=== PATIENT | female | born 1960 | race Caucasian/White ===

== ENCOUNTER 2022-06-25 12:20 | Emergency (ER) | payer OTHER ==
[2022-06-25 18:41] LABS: Benzodiazepines Screen,Urine Detected (NotDetected)
[2022-06-25 18:42] LABS: Amphetamine Screen,Urine Not Detected (NotDetected); Barbiturate Screen,Urine Not Detected (NotDetected); Cocaine Screen,Urine Not Detected (NotDetected); Methadone Screen, Urine Not Detected (NotDetected); Opiate Screen,Urine Not Detected (NotDetected); Oxycodone Screen, Urine Not Detected (NotDetected); Phencyclidine Screen,Urine Not Detected (NotDetected); Tricyclic Antidepressant,Urine Not Detected (NotDetected); Urn Cannabinoid Scrn Not Detected (NotDetected)
--- NOTE | 2022-06-25 20:08 | ED ---
General Adult HPI - General Source: patient Mode of arrival: ambulatory Limitations: no limitations <Jesus Manuel Cruz Orly - Last Filed: 06/25/22 22:19> <KarisBrandon robin - Last Filed: 06/26/22 01:29> - General Chief complaint: Psychiatric Symptoms Stated complaint: Mental health Time Seen by Provider: 06/25/22 14:34 - History of Present Illness Initial comments: Dictation was produced using [employer] dictation software. please excuse any grammatical, word or spelling errors. Chief Complaint: 61-year-old male presents with depression History of Present Illness: 89-year-old female presents emergency department for depression. Patient states she does not want to live anymore she does not have any active plan to harm herself. Denies any homicidal ideation. She states she is depressed because of losing 2 of her 3 children. Patient denies any visual auditory hallucinations. She states that she's been having some aching pain to her anterior abdomen. Denies any history of coronary artery disease she does this of a history of mitral valve prolapse. She has a achy chest pressure that is nonradiating. Not associated with diaphoresis or nausea. No strong family history of coronary artery disease or heart conditions. The ROS documented in this emergency department record has been reviewed and confirmed by me. Those systems with pertinent positive or negative responses have been documented in the HPI. All other systems are other negative and/or noncontributory. PHYSICAL EXAM: General Impression: Alert and oriented x3, not in acute distress HEENT: Normocephalic atraumatic, extra-ocular movements intact, pupils equal and reactive to light bilaterally, mucous membranes moist. Cardiovascular: Heart regular rate and rhythm Chest: Able to complete full sentences, no retractions, no tachypnea Abdomen: abdomen soft, non-tender, non-distended, no organomegaly Musculoskeletal: Pulses present and equal in all extremities, no peripheral edema Motor: no focal deficits noted Neurological: CN II-XII grossly intact, no focal motor or sensory deficits noted Skin: Intact with no visualized rashes Psych: Normal affect and mood ED course: 61-year-old female presents emergency department for depression she complains of atypical chest pain with typical features. Patient does not have a lot of risk for coronary artery disease. Vital signs upon arrival are within acceptable limits. Laboratory evaluation obtained. CBC, coag panel metabolic panel is unremarkable. Troponin is negative. Patient medically cleared for EPS evaluation. EKG interpretation: Ventricular rate 49, sinus bradycardia, VT interval 127, QS 150, QTc 395. No VT prolongation, no QTC prolongation, no ST or T-wave changes noted. Overall, this EKG is unremarkable (Jesus Manuel Crzu) - Related Data Allergies Allergy/AdvReac Type Severity Reaction Status Date / Time No Known Allergies Allergy Verified 06/25/22 22:19 Review of Systems ROS Other: All systems not noted in ROS Statement are negative. <Jesus Manuel Cruz - Last Filed: 06/25/22 22:19> ROS Other: All systems not noted in ROS Statement are negative. <Brandon Sandy - Last Filed: 06/26/22 01:29> ROS Statement: Those systems with pertinent positive or pertinent negative responses have been documented in the HPI. Past Medical History Past Medical History: Mitral Valve Prolapse (MVP), Rheumatoid Arthritis (RA) Past Surgical History: Breast Surgery, Orthopedic Surgery Past Psychological History: Anxiety, Depression, PTSD Smoking Status: Current every day smoker Past Alcohol Use History: None Reported Past Drug Use History: Heroin, Prescription Drug Abuse <Jesus Manuel Cruz - Last Filed: 06/25/22 22:19> General Exam Limitations: no limitations <Jesus Manuel Cruz - Last Filed: 06/25/22 22:19> Course Vital Signs 06/25/22 12:25 Temperature 98.2 F Pulse Rate 64 Respiratory 18 Rate Blood Pressure 176/73 O2 Sat by Pulse 100 Oximetry Medical Decision Making - Lab Data Result diagrams: 06/25/22 20:48 06/25/22 20:48 <Jesus Manuel Cruz - Last Filed: 06/25/22 22:19> - Lab Data Result diagrams: 06/25/22 20:48 06/25/22 20:48 <Brandon Sandy - Last Filed: 06/26/22 01:29> - Lab Data Lab Results 06/25/22 06/25/22 06/25/22 Range/Units 18:03 20:48 20:48 WBC 9.1 (3.8-10.6) k/uL RBC 5.15 (3.80-5.40) m/uL Hgb 15.4 (11.4-16.0) gm/dL Hct 48.4 H (34.0-46.0) % MCV 94.1 (80.0-100.0) fL MCH 29.9 (25.0-35.0) pg MCHC 31.7 (31.0-37.0) g/dL RDW 14.5 (11.5-15.5) % Plt Count 354 (150-450) k/uL MPV 7.1 Neutrophils % 58 % Lymphocytes % 35 % Monocytes % 3 % Eosinophils % 3 % Basophils % 5 % Neutrophils # 5.3 (1.3-7.7) k/uL Lymphocytes # 3.1 (1.0-4.8) k/uL Monocytes # 0.3 (0-1.0) k/uL Eosinophils # 0.2 (0-0.7) k/uL Basophils # 0.5 H (0-0.2) k/uL PT 10.1 (9.0-12.0) sec INR 0.9 (<1.2) APTT 25.5 (22.0-30.0) sec Sodium (137-145) mmol/L Potassium (3.5-5.1) mmol/L Chloride (98-107) mmol/L Carbon Dioxide (22-30) mmol/L Anion Gap mmol/L BUN (7-17) mg/dL Creatinine (0.52-1.04) mg/dL Est GFR (CKD-EPI)AfAm (>60 ml/min/1.73 sqM) Est GFR (CKD-EPI)NonAf (>60 ml/min/1.73 sqM) Glucose (74-99) mg/dL Calcium (8.4-10.2) mg/dL Troponin I (0.000-0.034) ng/mL Urine Opiates Screen Not Detected (NotDetected) Ur Oxycodone Screen Not Detected (NotDetected) Urine Methadone Screen Not Detected (NotDetected) Ur Propoxyphene Screen Not Detected (NotDetected) Ur Barbiturates Screen Not Detected (NotDetected) U Tricyclic Antidepress Not Detected (NotDetected) Ur Phencyclidine Scrn Not Detected (NotDetected) Ur Amphetamines Screen Not Detected (NotDetected) U Methamphetamines Scrn Not Detected (NotDetected) U Benzodiazepines Scrn Detected H (NotDetected) Urine Cocaine Screen Not Detected (NotDetected) U Marijuana (THC) Screen Not Detected (NotDetected) 06/25/22 06/25/22 Range/Units 20:48 20:48 WBC (3.8-10.6) k/uL RBC (3.80-5.40) m/uL Hgb (11.4-16.0) gm/dL Hct (34.0-46.0) % MCV (80.0-100.0) fL MCH (25.0-35.0) pg MCHC (31.0-37.0) g/dL RDW (11.5-15.5) % Plt Count (150-450) k/uL MPV Neutrophils % % Lymphocytes % % Monocytes % % Eosinophils % % Basophils % % Neutrophils # (1.3-7.7) k/uL Lymphocytes # (1.0-4.8) k/uL Monocytes # (0-1.0) k/uL Eosinophils # (0-0.7) k/uL Basophils # (0-0.2) k/uL PT (9.0-12.0) sec INR (<1.2) APTT (22.0-30.0) sec Sodium 138 (137-145) mmol/L Potassium 4.0 (3.5-5.1) mmol/L Chloride 97 L (98-107) mmol/L Carbon Dioxide 26 (22-30) mmol/L Anion Gap 15 mmol/L BUN 17 (7-17) mg/dL Creatinine 0.76 (0.52-1.04) mg/dL Est GFR (CKD-EPI)AfAm >90 (>60 ml/min/1.73 sqM) Est GFR (CKD-EPI)NonAf 87 (>60 ml/min/1.73 sqM) Glucose 90 (74-99) mg/dL Calcium 10.5 H (8.4-10.2) mg/dL Troponin I <0.012 (0.000-0.034) ng/mL Urine Opiates Screen (NotDetected) Ur Oxycodone Screen (NotDetected) Urine Methadone Screen (NotDetected) Ur Propoxyphene Screen (NotDetected) Ur Barbiturates Screen (NotDetected) U Tricyclic Antidepress (NotDetected) Ur Phencyclidine Scrn (NotDetected) Ur Amphetamines Screen (NotDetected) U Methamphetamines Scrn (NotDetected) U Benzodiazepines Scrn (NotDetected) Urine Cocaine Screen (NotDetected) U Marijuana (THC) Screen (NotDetected) Disposition <Jesus Manuel Cruz - Last Filed: 06/25/22 22:19> Is patient prescribed a controlled substance at d/c from ED?: No <Brandon Sandy - Last Filed: 06/26/22 01:29> Clinical Impression: Mood disorder Disposition: HOME SELF-CARE Condition: Good Instructions (If sedation given, give patient instructions): Mood Disorders ( ED) Referrals: Nonstaff,Physician [Primary Care Provider] - 1-2 days
[2022-06-25 21:07] LABS: Basophils # (A) 0.5 k/uL (0-0.2); Basophils % (A) 5 %; Eosinophils # (A) 0.2 k/uL (0-0.7); Eosinophils % (A) 3 %; HCT 48.4 % (34.0-46.0); HGB 15.4 gm/dL (11.4-16.0); Lymphocytes # (A) 3.1 k/uL (1.0-4.8); Lymphocytes % (A) 35 %; MCH 29.9 pg (25.0-35.0); MCHC 31.7 g/dL (31.0-37.0); MCV 94.1 fL (80.0-100.0); Mean Platelet Volume 7.1; Monocytes # (A) 0.3 k/uL (0-1.0); Monocytes % (A) 3 %; Neutrophils # (A) 5.3 k/uL (1.3-7.7); Neutrophils % (A) 58 %; Platelet Count 354 k/uL (150-450); RBC 5.15 m/uL (3.80-5.40); RDW 14.5 % (11.5-15.5); WBC 9.1 k/uL (3.8-10.6)
[2022-06-25 21:19] LABS: African American GFR (CKD) >90 (>60 ml/min/1.73 sqM); Anion Gap 15 mmol/L; Blood Urea Nitrogen 17 mg/dL (7-17); Calcium 10.5 mg/dL (8.4-10.2); Carbon Dioxide 26 mmol/L (22-30); Chloride 97 mmol/L (98-107); Glucose 90 mg/dL (74-99); Non-African American GFR(CKD) 87 (>60 ml/min/1.73 sqM); Sodium 138 mmol/L (137-145)
[2022-06-25 21:22] LABS: INR 0.9 (<1.2); Partial Thromboplastin Time 25.5 sec (22.0-30.0); Prothrombin Time 10.1 sec (9.0-12.0)
[2022-06-26 01:45] VITALS: BP 128/80; PULSE 43; RESP 16; TEMP 97.9
== END 2022-06-26 01:46 | disposition home or self-care (01) ==
LOC: EC 12:20
DX: F39 Unspecified mood [affective] disorder (principal); R07.89 Other chest pain; R00.1 Bradycardia, unspecified; F13.90 Sedative, hypnotic, or anxiolytic use, unspecified, uncomplicated; M06.9 Rheumatoid arthritis, unspecified; F17.200 Nicotine dependence, unspecified, uncomplicated
CPT/HCPCS: 36415; 80048; 80306; 82075; 84484; 85025; 85610; 85730; 93005; 99285